=== PATIENT | male | born 1965 | race African-American/Black ===

== ENCOUNTER 2017-06-07 19:08 | Inpatient (IN) | payer BC ==
[2017-06-07] MEDS ORDERED: ACETAMINOPHEN 325 MG TABLET PO ONE (19:30)
[2017-06-07] MEDS ORDERED: KETOROLAC TROMETHAMINE INJ/PF 30 MG/1 ML SDV IV ONE (19:43)
[2017-06-07] MEDS ORDERED: NORMAL SALINE 1000 ML 1,000 ML IV ONE ×2 (19:43→21:06)
[2017-06-07] MEDS ORDERED: ONDANSETRON HCL INJ/PF 4 MG/2 ML SDV IV ONE (19:44)
--- NOTE | 2017-06-07 19:46 | ER Document Report ---
ED Medical Screen (RME) - General Chief Complaint: Flu Symptoms Stated Complaint: FLU LIKE SYMPTOMS Time Seen by Provider: 06/07/17 19:39 Mode of Arrival: Ambulatory Information source: Patient TRAVEL OUTSIDE OF THE [place] IN LAST 30 DAYS: No - HPI Patient complains to provider of: fever Notes: 06/07/17 19:45 Patient is here with complaints of fever, nausea, cough, body aches and overall not feeling well. Said he has not felt well since Thursday, but it seems to be getting worse. physical exam: Patient is in no distress but certainly appears to not feel well. No significant abdominal tenderness on exam. Tachycardia noted. An initial examination was made on the patient as part of the triage process, and it was determined a more comprehensive evaluation was necessary. Initial labs were ordered and patient was transferred to another provider in the ED who assumed care and finished evaluation and plan. - Related Data Allergies/Adverse Reactions: No Known Allergies Allergy (Unverified 02/06/13 07:01) Past Medical History Past Surgical History: Reports: Hx Orthopedic Surgery - right wrist Physical Exam - Vital signs Vitals: Temp Pulse Resp BP Pulse Ox 103.0 F H 130 H 20 125/72 92 06/07/17 19:27 06/07/17 19:27 06/07/17 19:27 06/07/17 19:27 06/07/17 19:27 Course - Vital Signs Vital signs: Temp Pulse Resp BP Pulse Ox 103.0 F H 130 H 20 125/72 92 06/07/17 19:27 06/07/17 19:27 06/07/17 19:27 06/07/17 19:27 06/07/17 19:27
[2017-06-07 20:43] LABS: ABSOLUTE LYMPHOCYTES (AUTO) 1.1 10^3/uL (0.5-4.7); ABSOLUTE MONOCYTES (AUTO) 0.4 10^3/uL (0.1-1.4); ABSOLUTE NEUT (AUTO) 8.9 10^3/uL (1.7-8.2); BASOPHILS % (AUTO) 0.3 % (0-2); HEMATOCRIT 42.3 % (37.9-51.0); HEMOGLOBIN 14.1 g/dL (13.5-17.0); LYMPHOCYTES % (AUTO) 10.2 % (13-45); MEAN CORPUSCULAR HEMOGLOBIN 28.5 pg (27.0-33.4); MEAN CORPUSCULAR HGB CONC 33.4 g/dL (32.0-36.0); MEAN CORPUSCULAR VOLUME 86 fl (80-97); PLATELET COUNT 228 10^3/uL (150-450); RED BLOOD COUNT 4.95 10^6/uL (4.35-5.55); RED CELL DISTRIBUTION WIDTH 14.1 % (11.5-14.0); SEGMENTED NEUTROPHILS % (AUTO) 85.5 % (42-78); TOTAL CELLS COUNTED % (AUTO) 100 %; WHITE BLOOD COUNT 10.4 10^3/uL (4.0-10.5)
[2017-06-07 20:57] LABS: APPEARANCE,URINE SLIGHTLY-CLOUDY; BILIRUBIN,URINE NEGATIVE (NEGATIVE); COLOR,URINE YELLOW; GLUCOSE, URINE NEGATIVE (NEGATIVE); KETONES,URINE 20 mg/dL (NEGATIVE); LEUKOCYTE ESTERASE,URINE SMALL (NEGATIVE); NITRITE,URINE NEGATIVE (NEGATIVE); PROTEIN,URINE NEGATIVE (NEGATIVE); URINE SPECIFIC GRAVITY 1.024; UROBILINOGEN,URINE NEGATIVE mg/dL (<2.0)
[2017-06-07 21:01] LABS: ALANINE AMINOTRANSFERASE 37 U/L (21-72); ALBUMIN 4.3 g/dL (3.5-5.0); ALKALINE PHOSPHATASE 70 U/L (38-126); ANION GAP 13 (5-19); ASPARTATE AMINO TRANSFERASE 25 U/L (17-59); BILIRUBIN,DIRECT 0.1 mg/dL (0.0-0.4); BILIRUBIN,TOTAL 0.2 mg/dL (0.2-1.3); BLOOD UREA NITROGEN 18 mg/dL (7-20); CALCIUM 9.6 mg/dL (8.4-10.2); CARBON DIOXIDE 20 mmol/L (22-30); CHLORIDE 106 mmol/L (98-107); GLUCOSE 120 mg/dL (75-110); POTASSIUM 3.7 mmol/L (3.6-5.0); SODIUM 139.2 mmol/L (137-145)
--- NOTE | 2017-06-07 21:44 | RADIOLOGY REPORT (SQ) ---
EXAM DESCRIPTION: CHEST SINGLE VIEW COMPLETED DATE/TIME: 06/07/2017 9:08 pm REASON FOR STUDY: fever, cough COMPARISON: None. EXAM PARAMETERS: NUMBER OF VIEWS: One view. TECHNIQUE: Single frontal radiographic view of the chest acquired. RADIATION DOSE: NA LIMITATIONS: None. FINDINGS: LUNGS AND PLEURA: Mild bibasilar airspace disease, atelectasis versus pneumonia Remainder of lungs are free of focal infiltrates. No pleural effusion. No pneumothorax. MEDIASTINUM AND HILAR STRUCTURES: No masses. Contour normal. HEART AND VASCULAR STRUCTURES: Heart normal in size. Normal vasculature. BONES: No acute findings. HARDWARE: None in the chest. OTHER: No other significant finding. IMPRESSION: Mild bibasilar airspace disease atelectasis versus pneumonia TECHNICAL DOCUMENTATION: JOB ID: [id number] [employer]- All Rights Reserved Reading location - IP/workstation name: [email or web address]
[2017-06-07] MEDS ORDERED: LEVOFLOXACIN 500 MG TABLET PO ONE (22:49)
[2017-06-07] MEDS ORDERED: LEVOFLOXACIN 750 MG/D5W RTU 750 MG/150 ML RTUPB IV ONE (23:33)
[2017-06-07] MEDS ORDERED: IPRATROPIUM/ALBUTEROL 0.5-2.5 MG/3 ML AMPUL NEB ONE (23:33)
--- NOTE | 2017-06-07 23:33 | ER Document Report ---
ED General - General Chief Complaint: Flu Symptoms Stated Complaint: FLU LIKE SYMPTOMS Time Seen by Provider: 06/07/17 19:39 Mode of Arrival: Ambulatory TRAVEL OUTSIDE OF THE [place] IN LAST 30 DAYS: No - HPI Patient complains to provider of: Fevers shortness of breath Notes: Patient coming in for evaluation of fever shortness of breath. Patient states ongoing since worse today. Patient denies any recent travel denies any recent antibiotics. Patient denies any significant medical problems. Patient states productive cough does have some recent sick contacts negative flu shot this year. Patient does not have a PCP. Patient looks unwell upon my evaluation heart rate is 130 with a temperature of 103 - Related Data Allergies/Adverse Reactions: No Known Allergies Allergy (Unverified 02/06/13 07:01) Past Medical History - General Information source: Patient - Social History Smoking Status: Unknown if Ever Smoked Family History: Reviewed & Not Pertinent Patient has suicidal ideation: No Patient has homicidal ideation: No Renal/ Medical History: Denies: Hx Peritoneal Dialysis Past Surgical History: Reports: Hx Orthopedic Surgery - right wrist Review of Systems - Review of Systems Constitutional: Fever EENT: No symptoms reported Cardiovascular: Palpitations Respiratory: No symptoms reported Gastrointestinal: No symptoms reported Genitourinary: No symptoms reported Male Genitourinary: No symptoms reported Musculoskeletal: No symptoms reported Skin: No symptoms reported Hematologic/Lymphatic: No symptoms reported Neurological/Psychological: No symptoms reported -: Yes All other systems reviewed and negative Physical Exam - Vital signs Vitals: Temp Pulse Resp BP Pulse Ox 103.0 F H 130 H 20 125/72 92 06/07/17 19:27 06/07/17 19:27 06/07/17 19:27 06/07/17 19:27 06/07/17 19:27 Interpretation: Tachycardic, Febrile - General General appearance: Appears well, Alert - HEENT Head: Normocephalic, Atraumatic Eyes: Normal Pupils: PERRL - Respiratory Respiratory status: No respiratory distress Chest status: Nontender Breath sounds: Normal Chest palpation: Normal - Cardiovascular Rhythm: Tachycardia Heart sounds: Normal auscultation Murmur: No - Abdominal Inspection: Normal Distension: No distension Bowel sounds: Normal Tenderness: Nontender Organomegaly: No organomegaly - Back Back: Normal, Nontender - Extremities General upper extremity: Normal inspection, Nontender, Normal color, Normal ROM , Normal temperature General lower extremity: Normal inspection, Nontender, Normal color, Normal ROM , Normal temperature, Normal weight bearing. No: Kimmie's sign - Neurological Neuro grossly intact: Yes Cognition: Normal Orientation: AAOx4 Ramon Coma Scale Eye Opening: Spontaneous Ramon Coma Scale Verbal: Oriented Ramon Coma Scale Motor: Obeys Commands Ramon Coma Scale Total: 15 Speech: Normal Motor strength normal: LUE, RUE, LLE, RLE Sensory: Normal - Psychological Associated symptoms: Normal affect, Normal mood - Skin Skin Temperature: Warm Skin Moisture: Dry Skin Color: Normal Course - Re-evaluation Re-evalutation: 06/08/17 00:07 Laboratory studies show a left shift with low bicarb consistent with dehydration. Tachycardia improved with IV fluids. Patient chest x-ray showed pneumonia evaluated patient patient did become hypoxic therefore discussed with hospitalist for admission. Patient was given IV Levaquin - Vital Signs Vital signs: Temp Pulse Resp BP Pulse Ox 99.1 F 130 H 22 H 115/78 94 06/08/17 00:01 06/07/17 19:27 06/08/17 00:01 06/07/17 23:17 06/08/17 00:01 - Laboratory Result Diagrams: 06/07/17 20:18 06/07/17 20:18 Laboratory results interpreted by me: 06/07/17 06/07/17 06/07/17 20:18 20:18 20:40 RDW 14.1 H Seg Neutrophils % 85.5 H Lymphocytes % 10.2 L Absolute Neutrophils 8.9 H Carbon Dioxide 20 L Glucose 120 H Urine Ketones 20 H Urine Blood MODERATE H Ur Leukocyte Esterase SMALL H Discharge - Discharge Clinical Impression: Hypoxia, Tachycardia Fever Qualifiers: Fever type: unspecified Qualified Code(s): R50.9 - Fever, unspecified Pneumonia Qualifiers: Pneumonia type: due to unspecified organism Laterality: bilateral Lung location : unspecified part of lung Qualified Code(s): J18.9 - Pneumonia, unspecified organism Condition: Good Disposition: ADMITTED INPATIENT [facility] Unit Admitted: Telemetry
[2017-06-07] MEDS ORDERED: PROMETHAZINE HCL INJ 25 MG/1 ML VIAL IV PRN (23:36)
[2017-06-07] MEDS ORDERED: ALBUTEROL SULFATE 0.083% NEB 2.5 MG/3 ML AMPUL NEB PRN (23:36)
[2017-06-07] MEDS ORDERED: OSELTAMIVIR PHOSPHATE 75 MG CAPSULE PO ONE (23:45)
[2017-06-07] MEDS ORDERED: OSELTAMIVIR PHOSPHATE 75 MG CAPSULE ONE (23:54)
[2017-06-08] MEDS: ACETAMINOPHEN 325 MG TABLET PO PRN ×2 (00:11→13:02)
--- NOTE | 2017-06-08 03:17 | PDOC H&P ---
History of Present Illness Patient complains of: Fever of 104 and worsening shortness of breath today. History of Present Illness: MIREYA SCOTT is a 51 year old male smoker with no significant medical history was admitted with above-mentioned complaints. According to the patient, he has been having flu-like symptoms for the last 4 days. He had a fever today with chills, dyspnea on exertion and pleuritic chest pain. He had some cough with no sputum, no sore throat or runny nose. He said that he felt nauseous and had dry heaving but he denied any abdominal pain, diarrhea, constipation, urinary symptoms or any focal weakness. His was recently diagnosed with URI she has been taking antibiotics. He is up-to-date with his flu vaccine. In the ED, his temperature was 103, heart rate 130, respiratory rate 20, blood pressure 125/72 with oxygen saturation of 92% on room air. His WBC was 10.4. A chest x-ray was done which showed mild bibasilar airspace disease possibly atelectasis and/or pneumonia. He received 500 mg Levaquin 1, DuoNeb treatment 1 and 2 L of normal saline with some improvement in his symptoms. Past Medical History Medical History: None Past Surgical History Past Surgical History: Reports: Orthopedic Surgery - bilateral cyst removed from both wrists., Other - Right inguinal hernia repair. Social History Smoking Status: Current Every Day Smoker Cigarettes Packs Per Day: 0 - To 3 cigars a day for the last 5-8 years. He used to smoke cigarettes. Frequency of Alcohol Use: Social Hx Recreational Drug Use: No - Advance Directive Resuscitation Status: Full Code Family History Parental Family History Reviewed: Yes - No cardiac disease or diabetes in the family per patient. Children Family History Reviewed: No Sibling(s) Family History Reviewed.: Yes Medication/Allergy Home Medications: No Home Medications 06/08/17 Allergies/Adverse Reactions: No Known Allergies Allergy (Unverified 02/06/13 07:01) Review of Systems ROS unobtainable: Other - Pertinent positives and negatives as detailed in the HPI. Physical Exam Vital Signs: Temp Pulse Resp BP Pulse Ox 103.0 F H 130 H 16 115/78 92 06/07/17 19:27 06/07/17 19:27 06/07/17 23:17 06/07/17 23:17 03/25/18 23:17 Intake & Output 06/06/17 06/07/17 06/08/17 06:59 06:59 06:59 Weight 86.5 kg General appearance: PRESENT: no acute distress, well-developed, well-nourished Head exam: PRESENT: atraumatic, normocephalic Eye exam: PRESENT: conjunctiva pink, PERRLA. ABSENT: scleral icterus Mouth exam: PRESENT: moist, neck supple Respiratory exam: PRESENT: decreased breath sounds. ABSENT: rales, rhonchi, wheezes Cardiovascular exam: PRESENT: +S1, +S2, tachycardia Pulses: PRESENT: normal dorsalis pedis pul GI/Abdominal exam: PRESENT: normal bowel sounds, soft. ABSENT: distended, rebound, tenderness Rectal exam: PRESENT: deferred Extremities exam: ABSENT: pedal edema Musculoskeletal exam: PRESENT: full ROM Neurological exam: PRESENT: alert, altered, awake. ABSENT: motor sensory deficit - grossly. Skin exam: PRESENT: dry, warm. ABSENT: erythema, rash Results Laboratory Results: 06/07/17 20:18 06/07/17 20:18 06/07/17 06/07/17 06/07/17 20:18 20:18 20:40 WBC 10.4 RBC 4.95 Hgb 14.1 Hct 42.3 MCV 86 MCH 28.5 MCHC 33.4 RDW 14.1 H Plt Count 228 Seg Neutrophils % 85.5 H Lymphocytes % 10.2 L Monocytes % 4.0 Eosinophils % 0.0 Basophils % 0.3 Absolute Neutrophils 8.9 H Absolute Lymphocytes 1.1 Absolute Monocytes 0.4 Absolute Eosinophils 0.0 Absolute Basophils 0.0 Sodium 139.2 Potassium 3.7 Chloride 106 Carbon Dioxide 20 L Anion Gap 13 BUN 18 Creatinine 1.05 Est GFR ( Amer) > 60 Est GFR (Non-Af Amer) > 60 Glucose 120 H Calcium 9.6 Total Bilirubin 0.2 AST 25 ALT 37 Alkaline Phosphatase 70 Total Protein 7.0 Albumin 4.3 Lipase 66.0 Urine Color YELLOW Urine Appearance SLIGHTLY-CLOUDY Urine pH 5.0 Ur Specific [place] 1.024 Urine Protein NEGATIVE Urine Glucose (UA) NEGATIVE Urine Ketones 20 H Urine Blood MODERATE H Urine Nitrite NEGATIVE Ur Leukocyte Esterase SMALL H Urine WBC (Auto) 8 Urine RBC (Auto) 5 EKG Comments: 12-lead EKG, sinus rhythm, ventricular rate 125, axis +80, no acute changes. No previous EKG to compare. Impressions: Chest X-Ray 06/07/17 19:43 IMPRESSION: Mild bibasilar airspace disease atelectasis versus pneumonia Assessment & Plan - Diagnosis (1) Sepsis Qualifiers: Sepsis type: sepsis due to unspecified organism Qualified Code(s): A41.9 - Sepsis, unspecified organism Is this a current diagnosis for this admission?: Yes Plan: by criteria given fever and tachycardia in the setting of possible pneumonia, but the patient does not look septic clinically. Chest x-ray reviewed, UA ngative. We will continue Levaquin and add Tamiflu (unable to check flu screen at this time). We will follow-up cultures and check lactic acid. (2) Bilateral pneumonia Is this a current diagnosis for this admission?: Yes Plan: Bibasilar possibly. Chest x-ray reviewed. We will continue management as per # 1. (3) Dyspnea Is this a current diagnosis for this admission?: Yes Plan: Secondary to #2. We will continue management as mentioned above. (4) Smoker Is this a current diagnosis for this admission?: Yes Plan: 2-3 cigars a day for the last 5-8 years. He used to smoke cigarettes previously. He seems to be motivated to quit. Nicotine patch. - Time Time Spent: 50 to 70 Minutes - Inpatient Certification Based on my medical assessment, after consideration of the patient's comorbidities, presenting symptoms, or acuity I expect that the services needed warrant INPATIENT care.: Yes I certify that my determination is in accordance with my understanding of Medicare's requirements for reasonable and necessary INPATIENT services [42 CFR 412.3e].: Yes
[2017-06-08 03:44] LABS: HEMATOCRIT 37.4 % (37.9-51.0); HEMOGLOBIN 12.5 g/dL (13.5-17.0); MEAN CORPUSCULAR HEMOGLOBIN 28.9 pg (27.0-33.4); MEAN CORPUSCULAR HGB CONC 33.5 g/dL (32.0-36.0); MEAN CORPUSCULAR VOLUME 86 fl (80-97); PLATELET COUNT 191 10^3/uL (150-450); RED BLOOD COUNT 4.34 10^6/uL (4.35-5.55); RED CELL DISTRIBUTION WIDTH 14.3 % (11.5-14.0); WHITE BLOOD COUNT 10.5 10^3/uL (4.0-10.5)
[2017-06-08 04:14] LABS: ANION GAP 10 (5-19); BLOOD UREA NITROGEN 17 mg/dL (7-20); CALCIUM 8.4 mg/dL (8.4-10.2); CARBON DIOXIDE 22 mmol/L (22-30); CHLORIDE 108 mmol/L (98-107); GLUCOSE 114 mg/dL (75-110); POTASSIUM 4.1 mmol/L (3.6-5.0); SODIUM 139.9 mmol/L (137-145)
[2017-06-08] MEDS: HEPARIN SOD (PORCINE) 5,000 UNIT/ML 1 ML SYRINGE SUBCUT SCH ×3 (06:24→22:08)
--- NOTE | 2017-06-08 07:18 | EKG REPORT ---
SEVERITY:- ABNORMAL ECG - SINUS TACHYCARDIA PROBABLE LEFT ATRIAL ABNORMALITY BORDERLINE INFERIOR Q WAVES NONSPECIFIC T ABNORMALITIES, INFERIOR LEADS : Confirmed by: Robel Fuentes MD 08-Jun-2017 07:17:47
[2017-06-08] MEDS ORDERED: IBUPROFEN 600 MG TABLET PO PRN (08:07)
[2017-06-08] MEDS ORDERED: LEVALBUTEROL HCL NEB 1.25 MG/3 ML AMPUL NEB PRN (08:08)
[2017-06-08] MEDS ORDERED: NORMAL SALINE 1000 ML 1,000 ML IV PRN (08:18)
--- NOTE | 2017-06-08 08:49 | PROGRESS NOTE E ---
Progress Note NAME: MIREYA SCOTT : 1965 AGE: 51Y DATE:06/08/2017 ROOM: 530 SUBJECTIVE: The patient is lying in bed. He states he feels a little better than when he came in; however, he remains significantly dyspneic and is producing sputum. The patient denies any nausea, vomiting, diarrhea. No dizziness or chest pain. The patient admits to feeling fevered with diaphoresis with intermittent chills. The patient has been afebrile. His blood pressure has been in a good range. The patient voices no other concerns at this time. REVIEW OF SYSTEMS: The rest of the review of systems negative. MEDICATIONS: Have been reviewed. OBJECTIVE: GENERAL: The patient is a 51-year-old male who is awake, alert and oriented to person, time, place and situation. He is verbal, conversational, does not appear to be in any acute distress. VITAL SIGNS: Temperature is 100.2, pulse 106, respirations 16, blood pressure is 112/69, oxygen saturation is 94% on room air. SKIN: Warm and dry. No rash. He is not diaphoretic. HEENT: Pupils, equal, round and reactive to light and accommodation. Conjunctivae are pink. NECK: No evidence of JVP. CARDIOVASCULAR: Heart is regular, slightly tachycardiac, no rub. CHEST: Diminished, symmetrical, unlabored at this time. ABDOMEN: Soft, nontender, nondistended. BACK: No CVA tenderness or sacral edema. EXTREMITIES: No clubbing, cyanosis, or edema. PSYCHIATRIC: Appropriate affect, pleasant mood. DIAGNOSTICS: Lab values are as follows, hematology obtained on 06/08/2017: WBC 10.5, hemoglobin 12.5, hematocrit 37.4, platelet count 191,000. Chemistry obtained on 06/08/2017: Sodium 139, potassium 4.1, chloride 108, carbon dioxide 22, BUN 17, creatinine 0.91, glucose 114, calcium 8.4. IMPRESSION AND PLAN: 1. INFLUENZA: The patient's had tested positive for influenza. The patient has all the symptoms of such. We will continue Tamiflu and follow. 2. BIBASILAR PNEUMONIA: Most likely secondary to number 1. We will continue Levaquin, as well as nebulizers given the patient's dyspnea. 3. SEPSIS: Secondary to the above, currently awaiting blood and sputum cultures. We will also schedule for CTA given the patient's persistent tachycardia, positive D-dimer as well and follow. 4. TOBACCO DEPENDENCY: Continuous. Spent 3 minutes discussing smoking cessation, education. The patient declines any pharmacological intervention at this time, but is agreeable to a p.r.n. nicotine patch. CODE STATUS: The patient is a full code. DISPOSITION: Pending patient's symptomatology and diagnostic findings, we will reevaluate in the a.m. TIME SPENT: On this follow up, including assessment and plan, physical examination, patient education, review of records, is 25 minutes. DICTATING PHYSICIAN: CHERYL LOUIS [id number] PHY#: [id number] ID: [id number] JOB#: [id number] ACCT: [id number] cc: >
--- NOTE | 2017-06-08 09:46 | RADIOLOGY REPORT (SQ) ---
EXAM DESCRIPTION: CTA CHEST COMPLETED DATE/TIME: 06/08/2017 9:11 am REASON FOR STUDY: fever/SOB COMPARISON: None. TECHNIQUE: CT scan of the chest performed using helical scanning technique with dynamic intravenous contrast injection. Images reviewed with lung, soft tissue and bone windows. Reconstructed coronal and sagittal MPR images reviewed. Additional 3 dimensional post-processing performed to develop Maximal Intensity Projection images (DE P). All images stored on PACS. All CT scanners at this facility use dose modulation, iterative reconstruction, and/or weight based d osing when appropriate to reduce radiation dose to as low as reasonably achievable (ALARA). [facility]: Dose Right [facility]: CareDose [facility]: Dose Right [facility]: Teradose 4D [facility]: [employer] CONTRAST TYPE AND DOSE: contrast/concentration: Isovue 370.00 mg/ml; Total Contrast Delivered: 68.0 ml; Total Saline Delivered: 110.0 ml Contrast bolus optimized for the pulmonary arteries. Not diagnostic for the aorta. RENAL FUNCTION: BUN 17 creatinine 0.9 RADIATION DOSE: CT Rad equipment meets quality standard of care and radiation dose reduction techniq ues were employed. CTDIvol: 11.3 - 12.9 mGy. DLP: 477 mGy-cm. . LIMITATIONS: None. FINDINGS: LUNGS AND PLEURA: Patchy bilateral airspace disease with relative sparing of the lung apic es. Air bronchograms left lower lobe. No effusions. AORTA AND GREAT VESSELS: No aneurysm. Contrast bolus not optimized for the aorta. HEART: No pericardial effusion. No significant coronary artery calcifications. PULMONARY ARTERIES: No emboli visualized in the main pulmonary arteries or the segmental branches. HILAR AND MEDIASTINAL STRUCTURES: No identified masses or abnormal nodes. HARDWARE: None in the chest. UPPER ABDOMEN: No significant findings. Limited exam. THYROID AND OTHER SOFT TISSUES: No masses. No adenopathy. BONES: No acute or significant finding. 3D MIPS: Confirm above findings. OTHER: No other significant finding. IMPRESSION: 1. No PE. 2. Atypical pneumonia. COMMENT: Quality ID # [id number]: Final reports with documentation of one or more dose reduction techniques (e.g., Automated exposure control, adjustment of the mA and/or kV according to patient size, use of iterative reconstruction technique) TECHNICAL DOCUMENTATION: JOB ID: [id number] [employer]- All Rights Reserved Reading location - IP/workstation name: [email or web address]
[2017-06-08] MEDS: LEVOFLOXACIN 750 MG/D5W RTU 750 MG/150 ML RTUPB IV SCH (10:40)
[2017-06-08] MEDS: NICOTINE 21 MG/24 HR PATCH.TD24 TD SCH (10:41)
[2017-06-08] MEDS: OSELTAMIVIR PHOSPHATE 75 MG CAPSULE PO SCH ×2 (14:20→17:42)
[2017-06-08] MEDS ORDERED: PROMETHAZINE HCL INJ 25 MG/1 ML VIAL IV PRN (15:00)
[2017-06-09 04:48] LABS: HEMATOCRIT 38.7 % (37.9-51.0); HEMOGLOBIN 13.1 g/dL (13.5-17.0); MEAN CORPUSCULAR HGB CONC 33.9 g/dL (32.0-36.0); MEAN CORPUSCULAR VOLUME 86 fl (80-97); PLATELET COUNT 184 10^3/uL (150-450); RED BLOOD COUNT 4.52 10^6/uL (4.35-5.55); RED CELL DISTRIBUTION WIDTH 14.4 % (11.5-14.0); WHITE BLOOD COUNT 9.3 10^3/uL (4.0-10.5)
[2017-06-09 05:06] LABS: BLOOD UREA NITROGEN 12 mg/dL (7-20); CALCIUM 9.2 mg/dL (8.4-10.2); CHLORIDE 109 mmol/L (98-107); GLUCOSE 99 mg/dL (75-110)
[2017-06-09 05:09] LABS: ANION GAP 10 (5-19); CARBON DIOXIDE 22 mmol/L (22-30)
[2017-06-09] MEDS: HEPARIN SOD (PORCINE) 5,000 UNIT/ML 1 ML SYRINGE SUBCUT SCH ×3 (05:57→21:27)
[2017-06-09] MEDS: LEVOFLOXACIN 750 MG/D5W RTU 750 MG/150 ML RTUPB IV SCH (12:15)
[2017-06-09] MEDS: NICOTINE 21 MG/24 HR PATCH.TD24 TD SCH (12:15)
[2017-06-09] MEDS: OSELTAMIVIR PHOSPHATE 75 MG CAPSULE PO SCH ×2 (12:16→17:46)
--- NOTE | 2017-06-09 18:23 | PDOC PROGRESS REPORT ---
Subjective Progress Note for:: 06/09/17 Subjective:: 51 yo male with bilateral PNA (culture negative), possible influenza, on IV levaquin and tamiflu, with gradual improvement in clincal picture. Continued productive coughing, fatigue, subjective fever/chills occuring. Labs show gradual improvement in leukocytosis. Reason For Visit: SEPSIS/POSSIBLE PNEUMONIA Physical Exam Vital Signs: Temp Pulse Resp BP Pulse Ox 98.6 F 92 16 113/83 95 06/09/17 11:00 06/09/17 14:38 06/09/17 14:38 06/09/17 11:00 06/09/17 14:38 Intake & Output 06/08/17 06/09/17 06/10/17 06:59 06:59 06:59 Intake Total 1989 Output Total 3025 Balance -1036 Weight 84.8 kg General appearance: PRESENT: well-developed. ABSENT: no acute distress, mild distress, morbidly obese, obese Head exam: PRESENT: atraumatic, normocephalic Eye exam: PRESENT: EOMI, PERRLA Mouth exam: ABSENT: dry mucosa, moist, neck supple Throat exam: ABSENT: tonsillar erythema, tonsillar exudate Neck exam: PRESENT: full ROM. ABSENT: JVD Respiratory exam: ABSENT: accessory muscle use, rales, retraction, rhonchi, wheezes Cardiovascular exam: PRESENT: RRR, +S1, +S2 Pulses: PRESENT: normal radial pulses Vascular exam: PRESENT: normal capillary refill. ABSENT: pallor GI/Abdominal exam: PRESENT: normal bowel sounds. ABSENT: ascites, firm, Witt' s sign Extremities exam: ABSENT: calf tenderness, joint swelling Musculoskeletal exam: PRESENT: full ROM. ABSENT: normal inspection Neurological exam: PRESENT: alert, oriented to person, oriented to place, oriented to time, CN II-XII grossly intact Psychiatric exam: ABSENT: agitated, anxious Focused psych exam: ABSENT: catatonic, paranoid Skin exam: ABSENT: abrasion, cyanosis, dry, normal color, pallor Results Laboratory Results: 06/09/17 04:17 06/09/17 04:17 06/09/17 06/09/17 04:17 04:17 WBC 9.3 RBC 4.52 Hgb 13.1 L Hct 38.7 MCV 86 MCH 29.0 MCHC 33.9 RDW 14.4 H Plt Count 184 Sodium 141.0 Potassium 4.0 Chloride 109 H Carbon Dioxide 22 Anion Gap 10 BUN 12 Creatinine 0.91 Est GFR ( Amer) > 60 Est GFR (Non-Af Amer) > 60 Glucose 99 Calcium 9.2 Magnesium 1.8 Impressions: Chest X-Ray 06/07/17 19:43 IMPRESSION: Mild bibasilar airspace disease atelectasis versus pneumonia Chest/Abdomen CTA 06/08/17 00:00 IMPRESSION: 1. No PE. 2. Atypical pneumonia. Assessment & Plan - Inpatient Certification Based on my medical assessment, after consideration of the patient's comorbidities, presenting symptoms, or acuity I expect that the services needed warrant INPATIENT care.: Yes Medical Necessity: Need for IV Antibiotics - Plan Summary Plan Summary: (1) Sepsis improving, secondary to bilateral PNA continue levaquin and tamiflu: since unable to test for flu no growth on cultures at present. (2) Bilateral pneumonia on CXR, continue IV levaquin stable vitals and improving leukocytosis. gradual clinical improvement no growth on sputum or blood x2 cultures. (3) Dyspnea Secondary to #2. management per above (4) Smoker Nicotine patch, smoking hx
[2017-06-10 04:15] LABS: HEMATOCRIT 40.7 % (37.9-51.0); HEMOGLOBIN 13.6 g/dL (13.5-17.0); MEAN CORPUSCULAR HEMOGLOBIN 28.6 pg (27.0-33.4); MEAN CORPUSCULAR HGB CONC 33.4 g/dL (32.0-36.0); MEAN CORPUSCULAR VOLUME 86 fl (80-97); PLATELET COUNT 215 10^3/uL (150-450); RED BLOOD COUNT 4.75 10^6/uL (4.35-5.55); RED CELL DISTRIBUTION WIDTH 14.1 % (11.5-14.0); WHITE BLOOD COUNT 8.7 10^3/uL (4.0-10.5)
[2017-06-10 04:41] LABS: ALBUMIN 3.7 g/dL (3.5-5.0); ANION GAP 11 (5-19); BLOOD UREA NITROGEN 14 mg/dL (7-20); CALCIUM 9.5 mg/dL (8.4-10.2); CARBON DIOXIDE 22 mmol/L (22-30); CHLORIDE 109 mmol/L (98-107); GLUCOSE 101 mg/dL (75-110); PHOSPHORUS 3.9 mg/dL (2.5-4.5); POTASSIUM 3.8 mmol/L (3.6-5.0); SODIUM 141.5 mmol/L (137-145)
[2017-06-10] MEDS: HEPARIN SOD (PORCINE) 5,000 UNIT/ML 1 ML SYRINGE SUBCUT SCH ×3 (05:14→21:55)
[2017-06-10] MEDS: LEVOFLOXACIN 750 MG/D5W RTU 750 MG/150 ML RTUPB IV SCH (11:09)
[2017-06-10] MEDS: NICOTINE 21 MG/24 HR PATCH.TD24 TD SCH (11:12)
[2017-06-10] MEDS: OSELTAMIVIR PHOSPHATE 75 MG CAPSULE PO SCH ×2 (11:13→17:16)
--- NOTE | 2017-06-10 21:37 | PDOC PROGRESS REPORT ---
Subjective Progress Note for:: 06/10/17 Subjective:: Clinically improving. Fatigued after walking in [place] today. Improved air movement on pulm exam. Likely d/c home tomorrow on antibiotics. Reason For Visit: SEPSIS/POSSIBLE PNEUMONIA Physical Exam Vital Signs: Temp Pulse Resp BP Pulse Ox 98.8 F 92 16 107/73 97 06/10/17 16:27 06/10/17 16:27 06/10/17 16:27 06/10/17 16:27 06/10/17 16:27 Intake & Output 06/09/17 06/10/17 06/11/17 06:59 06:59 06:59 Intake Total 1988 849 750 Output Total 3022 1250 800 [facility] -[phone] -401 -50 General appearance: PRESENT: no acute distress, thin Head exam: PRESENT: atraumatic, normocephalic Eye exam: PRESENT: EOMI, PERRLA Ear exam: PRESENT: normal external ear exam. ABSENT: bleeding Mouth exam: PRESENT: moist, neck supple Neck exam: ABSENT: carotid bruit, JVD, tenderness Respiratory exam: ABSENT: accessory muscle use, rales, rhonchi, stridor, wheezes Cardiovascular exam: PRESENT: RRR, +S1, +S2 Pulses: PRESENT: normal radial pulses, normal dorsalis pedis pul Vascular exam: PRESENT: normal capillary refill. ABSENT: pallor GI/Abdominal exam: PRESENT: normal bowel sounds. ABSENT: distended, firm Extremities exam: ABSENT: calf tenderness, joint swelling Musculoskeletal exam: PRESENT: ambulatory, full ROM Neurological exam: PRESENT: alert, oriented to person, oriented to place, oriented to time, oriented to situation, CN II-XII grossly intact Psychiatric exam: ABSENT: agitated, anxious Focused psych exam: ABSENT: delusional, paranoid Skin exam: ABSENT: abrasion, cyanosis, mottled Results Laboratory Results: 06/10/17 03:47 06/10/17 03:47 06/10/17 06/10/17 03:47 03:47 WBC 8.7 RBC 4.75 Hgb 13.6 Hct 40.7 MCV 86 MCH 28.6 MCHC 33.4 RDW 14.1 H Plt Count 215 Sodium 141.5 Potassium 3.8 Chloride 109 H Carbon Dioxide 22 Anion Gap 11 BUN 14 Creatinine 0.94 Est GFR ( Amer) > 60 Est GFR (Non-Af Amer) > 60 Glucose 101 Calcium 9.5 Phosphorus 3.9 Albumin 3.7 06/08/17 04:21 Sputum Gram Stain - Final 06/08/17 04:21 Sputum Sputum Culture - Final NORMAL KACY Impressions: Chest X-Ray 06/07/17 19:43 IMPRESSION: Mild bibasilar airspace disease atelectasis versus pneumonia Chest/Abdomen CTA 06/08/17 00:00 IMPRESSION: 1. No PE. 2. Atypical pneumonia. Assessment & Plan - Plan Summary Plan Summary: (1) Sepsis improving, secondary to bilateral PNA continue levaquin and tamiflu: since unable to test for flu no growth on cultures at present. (2) Bilateral pneumonia on CXR, continue IV levaquin stable vitals and improving leukocytosis. gradual clinical improvement no growth on sputum or blood x2 cultures. likely d/c home tomorrow on PO Levaquin course (3) Dyspnea gradual improvement in dyspnea (4) Smoker Nicotine patch, smoking hx encouraged not to smoke
[2017-06-11 07:37] LABS: HEMATOCRIT 40.6 % (37.9-51.0); HEMOGLOBIN 13.7 g/dL (13.5-17.0); MEAN CORPUSCULAR HEMOGLOBIN 28.9 pg (27.0-33.4); MEAN CORPUSCULAR HGB CONC 33.6 g/dL (32.0-36.0); MEAN CORPUSCULAR VOLUME 86 fl (80-97); PLATELET COUNT 305 10^3/uL (150-450); RED BLOOD COUNT 4.73 10^6/uL (4.35-5.55); WHITE BLOOD COUNT 9.1 10^3/uL (4.0-10.5)
[2017-06-11] MEDS: HEPARIN SOD (PORCINE) 5,000 UNIT/ML 1 ML SYRINGE SUBCUT SCH (07:41)
[2017-06-11 07:51] LABS: ALBUMIN 3.8 g/dL (3.5-5.0); ANION GAP 12 (5-19); BLOOD UREA NITROGEN 17 mg/dL (7-20); CALCIUM 9.6 mg/dL (8.4-10.2); CARBON DIOXIDE 23 mmol/L (22-30); CHLORIDE 108 mmol/L (98-107); GLUCOSE 103 mg/dL (75-110); PHOSPHORUS 4.3 mg/dL (2.5-4.5); POTASSIUM 4.3 mmol/L (3.6-5.0); SODIUM 142.6 mmol/L (137-145)
[2017-06-11 08:24] VITALS: BP 113/82
[2017-06-11] MEDS: NICOTINE 21 MG/24 HR PATCH.TD24 TD SCH (09:21)
[2017-06-11] MEDS: OSELTAMIVIR PHOSPHATE 75 MG CAPSULE PO SCH (09:23)
[2017-06-11] MEDS ORDERED: LEVOFLOXACIN 750 MG TABLET PO SCH (10:00)
--- NOTE | 2017-06-11 23:43 | PDOC DISCHARGE SUMMARY ---
General - Admit/Disc Date/PCP Admission Date/Primary Care Provider: 06/07/17 23:39 Discharge Date: 06/11/17 - Discharge Diagnosis (1) Sepsis Is this a current diagnosis for this admission?: Yes (2) Bilateral pneumonia Is this a current diagnosis for this admission?: Yes (3) Dyspnea Is this a current diagnosis for this admission?: Yes (4) Smoker Is this a current diagnosis for this admission?: Yes - Additional Information Resuscitation Status: Full Code Discharge Diet: Regular Discharge Activity: Activity As Tolerated Prescriptions: Acetaminophen [Tylenol 325 mg Tablet] 650 mg PO Q4HP PRN #24 tablet PRN Reason: for Temp> 101, pain Albuterol Sulfate [Proventil Hfa] 6.7 gm IH Q4H PRN #1 hfa.aer.ad PRN Reason: Shortness Of Breath Levofloxacin [Levaquin 750 mg Tablet] 750 mg PO DAILY 5 Days #5 tablet Nicotine [Nicoderm 21 mg/24 Hr Transderm Patch] 1 each TD DAILY 7 Days #7 [email or web address] Ondansetron HCl [Zofran 4 mg Tablet] 1 - 2 tab PO Q4H PRN #10 tablet PRN Reason: nausea and vomiting Oseltamivir Phosphate [Tamiflu 75 mg Capsule] 75 mg PO BID 1 Days #2 capsule Home Medications: Acetaminophen [Tylenol 325 mg Tablet] 650 mg PO Q4HP PRN #24 tablet 06/11/17 Albuterol Sulfate [Proventil Hfa] 6.7 gm IH Q4H PRN #1 hfa.aer.ad 06/11/17 Levofloxacin [Levaquin 750 mg Tablet] 750 mg PO DAILY 5 Days #5 tablet 06/11/17 Nicotine [Nicoderm 21 mg/24 Hr Transderm Patch] 1 each TD DAILY 7 Days #7 patch.[email or web address] 06/11/17 Ondansetron HCl [Zofran 4 mg Tablet] 1 - 2 tab PO Q4H PRN #10 tablet 06/11/17 Oseltamivir Phosphate [Tamiflu 75 mg Capsule] 75 mg PO BID 1 Days #2 capsule History of Present Illness History of Present Illness: MIREYA SCOTT is a 51 year old male smoker with no significant medical history was admitted with above-mentioned complaints. According to the patient, he has been having flu-like symptoms for the last 4 days. He had a fever today with chills, dyspnea on exertion and pleuritic chest pain. He had some cough with no sputum, no sore throat or runny nose. He said that he felt nauseous and had dry heaving but he denied any abdominal pain, diarrhea, constipation, urinary symptoms or any focal weakness. His was recently diagnosed with URI she has been taking antibiotics. He is up-to-date with his flu vaccine. In the ED, his temperature was 103, heart rate 130, respiratory rate 20, blood pressure 125/72 with oxygen saturation of 92% on room air. His WBC was 10.4. A chest x-ray was done which showed mild bibasilar airspace disease possibly atelectasis and/or pneumonia. He received 500 mg Levaquin 1, DuoNeb treatment 1 and 2 L of normal saline with some improvement in his symptoms. Hospital Course Hospital Course: Patient received 5 days of high dose IV Levaquin with good clinical recovery and improving leukocytosis. He was sent home with 5 additional days of oral levaquin. Their was concern for possible influenza during his admission and he was started on Tamiflu. He received 4 days of coverage and given one additional day at d/c. Patient successfully weaned off of supplemental O2. He was treated with nebulized pulmonary medicine initially, but was not wheezing at the time of d/c. Patient was given a nicotine patch and instructed to stop smoking to allow continued lung recovery. Physical Exam Vital Signs: Temp Pulse Resp BP Pulse Ox 98 F 83 17 113/82 97 06/11/17 08:00 06/11/17 08:00 06/11/17 08:00 06/11/17 08:00 06/11/17 08:00 Intake & Output 06/10/17 06/11/17 06/12/17 06:59 06:59 06:59 Intake Total 849 1082 Output Total 1250 1310 Balance -401 -228 General appearance: PRESENT: no acute distress, cooperative Head exam: PRESENT: atraumatic, normocephalic Eye exam: PRESENT: EOMI, PERRLA Ear exam: PRESENT: normal external ear exam. ABSENT: bleeding Mouth exam: PRESENT: moist, neck supple Neck exam: PRESENT: full ROM. ABSENT: JVD, thyromegaly Respiratory exam: ABSENT: accessory muscle use, rales, rhonchi, wheezes Cardiovascular exam: PRESENT: RRR, +S1, +S2 Pulses: PRESENT: normal radial pulses, normal dorsalis pedis pul Vascular exam: PRESENT: normal capillary refill. ABSENT: pallor GI/Abdominal exam: PRESENT: normal bowel sounds, soft. ABSENT: mass, rigid Musculoskeletal exam: PRESENT: ambulatory, full ROM Neurological exam: PRESENT: alert, oriented to person, oriented to place, oriented to time, oriented to situation, CN II-XII grossly intact Psychiatric exam: ABSENT: agitated, anxious Focused psych exam: ABSENT: delusional, paranoid Skin exam: ABSENT: cyanosis, mottled Results Laboratory Results: 06/11/17 06:35 06/11/17 06:35 06/11/17 06/11/17 06:35 06:35 WBC 9.1 RBC 4.73 Hgb 13.7 Hct 40.6 MCV 86 MCH 28.9 MCHC 33.6 RDW 14.0 Plt Count 305 Sodium 142.6 Potassium 4.3 Chloride 108 H Carbon Dioxide 23 Anion Gap 12 BUN 17 Creatinine 0.95 Est GFR ( Amer) > 60 Est GFR (Non-Af Amer) > 60 Glucose 103 Calcium 9.6 Phosphorus 4.3 Albumin 3.8 Impressions: Chest X-Ray 06/07/17 19:43 IMPRESSION: Mild bibasilar airspace disease atelectasis versus pneumonia Chest/Abdomen CTA 06/08/17 00:00 IMPRESSION: 1. No PE. 2. Atypical pneumonia. Qualifiers - * PATEINT BEING DISCHARGED WITH ANY OF THE FOLLOWING DIAGNOSIS?: No Plan Discharge Plan: discharge condition: good activity: as tolerated diet: regular disposition: home f/u with PCP in the next 2 weeks. Time Spent: Greater than 30 Minutes
== END 2017-06-11 11:53 | disposition home or self-care (01) | DRG 871 ==
LOC: ER 19:08 → EH 23:39 → 5 06-08 01:15
PROVIDERS: ADMIT Internal Medicine Geriatric Medicine; ATTEND Internal Medicine Geriatric Medicine
DX: A41.9 Sepsis, unspecified organism (principal); J18.1 Lobar pneumonia, unspecified organism; E86.0 Dehydration; R09.02 Hypoxemia; J11.1 Influenza due to unidentified influenza virus with other respiratory manifestations; F17.210 Nicotine dependence, cigarettes, uncomplicated
CPT/HCPCS: 36415; 71045; 71275; 80048; 80053; 80069; 81001; 83605; 83690; 83735; 85025; 85027; 85379; 87040; 87070; 87086; 87205; 93005; 93010; 96361; 96374; 96375; 99285; J1644; J1885; J1956; J2405; J2550; J3490; J7030; J7620